=== PATIENT | male | born 1990 | race African-American/Black ===

== ENCOUNTER 2019-09-23 02:22 | Emergency (ER) | payer MEDICAID ==
[~2019-09-23] VITALS: Ht 185.4 cm; Wt 91.0 kg
[2019-09-23] MEDS ORDERED: METHYLPREDNISOLONE SOD SUCC 125 MG/2 ML VIAL IV ONE (02:45)
[2019-09-23] MEDS ORDERED: FAMOTIDINE 20MG/2ML VIAL IV ONE (02:45)
[2019-09-23 06:33] VITALS: BP 120/70
== END 2019-09-23 07:30 | disposition home or self-care (01) ==
LOC: ER 02:22
DX: T78.05XA Anaphylactic reaction due to tree nuts and seeds, initial encounter (principal); Z91.010 Allergy to peanuts; Z91.018 Allergy to other foods
CPT/HCPCS: 96374; 96375; 99283; J2930; J3490; Z7610